=== PATIENT | male | born 1985 | race Caucasian/White ===

== ENCOUNTER → 2016-07-25 | Outpatient (CLI) | payer SELFPAY ==
[~2016-07-25] MED LIST: ACET500C; ACET500C OR; ALBUTEROL INH; COMPOUND CREAM TOP; FLEXERIL OR; IBUP400T OR; IBUP800T PO; MAGN500T2 OR; RELPAX OR; SKEL800T5 OR; TESS100C OR; TRAM50TA2 OR; VITA50TA12 OR
[2016-07-25 16:56] LABS: ALBUMIN 4.1 GM/DL (3.2-5.2); ALBUMIN/GLOBULIN RATIO 1.37 (1.00-1.93); ALKALINE PHOSPHATASE 79 U/L (45-117); ALT/SGPT 58 U/L (12-78); ANION GAP 8 MEQ/L (8-16); AST/SGOT 21 U/L (15-37); BLOOD UREA NITROGEN 11 MG/DL (7-18); CALCIUM LEVEL 8.9 MG/DL (8.5-10.1); CARBON DIOXIDE LEVEL 31 MEQ/L (21-32); CHLORIDE LEVEL 104 MEQ/L (98-107); CREATININE FOR GFR 1.03 MG/DL (0.70-1.30); GLOMERULAR FILTRATION RATE > 60.0 (>60); GLUCOSE, FASTING 91 MG/DL (70-105); POTASSIUM SERUM 4.3 MEQ/L (3.5-5.1); SODIUM LEVEL 143 MEQ/L (136-145); TOTAL PROTEIN 7.1 GM/DL (6.4-8.2)
[2016-07-25 17:40] LABS: BASO % 0.5 % (0.0-1.0); EOS # 0.2 K/mm3 (0.0-0.50); LARGE UNSTAINED CELL # 0.1 K/mm3 (0.0-0.4); LARGE UNSTAINED CELL % 1.1 % (0.0-4.0); LYMPH # 3.2 K/mm3 (1.5-4.5); LYMPH % 45.9 % (24.0-44.0); MEAN CORPUSCULAR HEMOGLOBIN 30.8 pg (27.0-33.0); MEAN CORPUSCULAR HGB CONC 34.7 g/dl (32.0-36.5); MEAN CORPUSCULAR VOLUME 88.9 fl (80.0-96.0); MONO # 0.4 K/mm3 (0.0-0.8); MONO % 5.7 % (0.0-5.0); NEUTROPHILS % 43.9 % (36.0-66.0); PLATELET COUNT, AUTOMATED 185 k/mm3 (150-450); RED CELL DISTRIBUTION WIDTH 12.7 % (11.5-14.5); WHITE BLOOD COUNT 6.7 K/mm3 (4.0-10.0)
== END ==
LOC: M WUC 13:44
PROVIDERS: ATTEND Psychiatry & Neurology Neurology
DX: Z51.81 Encounter for therapeutic drug level monitoring (principal)

== ENCOUNTER → 2016-07-27 | Outpatient (CLI) | payer SELFPAY ==
--- NOTE | 2016-07-27 09:45 | REP ---
Clinical: Pain. Patellar tendonitis. Technique: AP, lateral, bilateral oblique and sunrise views. Findings: The osseous structures and joint spaces are intact and normal. There is no evidence for acute fracture or dislocation. No joint effusion is appreciated. Surrounding soft tissues are unremarkable. No subcutaneous emphysema or radiodense foreign body. Specifically, the patella and surrounding soft tissues appear normal for age. Impression: Normal, age-appropriate examination. No acute fracture or dislocation. Signed by Quang Salguero MD 07/27/2016 09:37 A
== END ==
LOC: M WUC 09:14
PROVIDERS: ATTEND Physician Assistant
DX: M76.52 Patellar tendinitis, left knee (principal)

== ENCOUNTER 2016-11-21 02:57 | Emergency (ER) | payer MEDICAID, SELFPAY ==
[~2016-11-21] VITALS: Ht 188 cm; Wt 108.4 kg
[2016-11-21] MEDS ORDERED: CYMB60CA3 PO (03:10)
[2016-11-21] MEDS ORDERED: METO-346 PO (03:10)
[2016-11-21] MEDS ORDERED: DEPA1TAB3 PO (03:10)
[2016-11-21] MEDS ORDERED: METO25TA74 PO (03:10)
[2016-11-21] MEDS ORDERED: DEPA250T32 PO (03:10)
[2016-11-21 04:47] VITALS: BP 126/83
== END 2016-11-21 04:48 | disposition home or self-care (01) ==
LOC: M ED 03:55
DX: S80.02XA Contusion of left knee, initial encounter (principal); S60.211A Contusion of right wrist, initial encounter; W01.0XXA Fall on same level from slipping, tripping and stumbling without subsequent striking against object, initial encounter; Y92.89 Other specified places as the place of occurrence of the external cause; Y93.9 Activity, unspecified; Y99.9 Unspecified external cause status; G89.29 Other chronic pain; F17.200 Nicotine dependence, unspecified, uncomplicated; Z88.0 Allergy status to penicillin; Z88.8 Allergy status to other drugs, medicaments and biological substances

== ENCOUNTER 2017-04-03 11:24 | Emergency (ER) | payer MEDICAID ==
[~2017-04-03] VITALS: Ht 188 cm; Wt 106.4 kg
[~2017-04-03 11:24] MED LIST changes: +CYMB60CA3 PO; +DEPA1TAB3 PO; +DEPA250T32 PO; +METO-346 PO; +METO1TAB32 PO
--- NOTE | 2017-04-03 17:48 | REP ---
REASON FOR EXAM: Back pain and lower extremity radicular symptoms. There are no prior MRI examinations for comparison. Review of the common view system shows no priors from [facility] or other [facility]. Disc space height and hydrational signal is normal throughout. There is no abnormal signal seen in the imaged portion of the spinal cord. Vertebral body height and alignment is within normal limits with the exception of a minimal superior endplate concave deformity involving L5. There is patchy T1 and T2 prolongation seen within the marrow above L5. At the L1-2 level there is no disc herniation, foraminal narrowing or central canal stenosis. At the L2-3 level there is no disc herniation, foraminal narrowing, or central canal stenosis. At the L3-4 level there is no disc herniation for foraminal narrowing or central canal stenosis. At the L4-5 level there is no disc herniation, foraminal narrowing of central canal stenosis. At the L5-S1 level there is no disc herniation, foraminal narrowing, or central canal stenosis. There is a rudimentary disc seen at S1-2. IMPRESSION: There is a minimal grade 1 superior endplate concave type compression of L5 with mild associated L5 marrow edema as described above. Signed by Leonard Gutierrez DO 04/03/2017 07:27 P
[2017-04-03] MEDS ORDERED: CYCL10TA PO (18:44)
[2017-04-03 19:03] VITALS: BP 138/74
== END 2017-04-03 19:04 | disposition home or self-care (01) ==
LOC: M ED 11:24
DX: S32.059A Unspecified fracture of fifth lumbar vertebra, initial encounter for closed fracture (principal); Z72.0 Tobacco use; V29.9XXS Motorcycle rider (driver) (passenger) injured in unspecified traffic accident, sequela; Y92.410 Unspecified street and highway as the place of occurrence of the external cause; Y93.89 Activity, other specified; Y99.9 Unspecified external cause status

== ENCOUNTER 2023-05-18 07:19 | Emergency (ER) | payer MEDICAID, SELFPAY ==
[~2023-05-18] VITALS: Ht 188 cm; Wt 113.8 kg
[~2023-05-18 07:19] MED LIST changes: +CYCL-707 PO; -CYMB60CA3 PO; +CYMB60CA4 PO
[2023-05-18] MEDS ORDERED: CYCL5TAB PO (07:32)
[2023-05-18] MEDS ORDERED: HYDR-3713 PO (07:32)
[2023-05-18] MEDS ORDERED: VENL1TAB35 PO (07:32)
[2023-05-18] MEDS ORDERED: SIMV10TA21 PO (07:32)
[2023-05-18] MEDS ORDERED: predniSONE 20 MG TAB PO ONE (10:50)
[2023-05-18] MEDS ORDERED: methocarbamoL 500 MG TAB PO ONE (10:50)
[2023-05-18] MEDS ORDERED: METH-1164 PO (11:54)
[2023-05-18] MEDS ORDERED: PRED20TA PO (11:54)
[2023-05-18 12:45] VITALS: BP 125/89; TEMP 97.3; O2SAT 97
== END 2023-05-18 12:47 | disposition home or self-care (01) ==
LOC: M ED 07:19
DX: M23.92 Unspecified internal derangement of left knee (principal); M79.605 Pain in left leg; I10 Essential (primary) hypertension; M54.50 Low back pain, unspecified; E78.5 Hyperlipidemia, unspecified; J45.909 Unspecified asthma, uncomplicated; Z88.0 Allergy status to penicillin; Z88.8 Allergy status to other drugs, medicaments and biological substances; Z79.52 Long term (current) use of systemic steroids; Z79.899 Other long term (current) drug therapy
CPT/HCPCS: 72131; 73564; 99283; J7512

== ENCOUNTER → 2023-07-18 | Outpatient (CLI) | payer OTHER ==
[~2023-07-18] MED LIST changes: +CYCL5TAB PO; +HYDR-3713 PO; +METH-1164 PO; +PRED20TA PO; +SIMV10TA21 PO; +VENL1TAB35 PO
== END ==
LOC: M PLAIMG 09:03
PROVIDERS: ATTEND Nurse Practitioner Family
DX: M25.562 Pain in left knee (principal); M67.52 Plica syndrome, left knee